=== PATIENT | male | born 1990 | race Hispanic/Latino ===

== ENCOUNTER 2018-06-02 09:15 | Outpatient (CLI) | payer OTHER | END 2018-06-02 09:16 | disposition home or self-care (01) | LOC: DTY/OP 09:15 | PROVIDERS: ATTEND Family Medicine | DX: E11.9 Type 2 diabetes mellitus without complications (principal) | CPT/HCPCS: 97802 ==

== ENCOUNTER 2023-10-23 10:22 | Outpatient (CLI) | payer BC | END 2023-10-23 10:23 | disposition home or self-care (01) | LOC: MRI 10:22 | PROVIDERS: ATTEND Otolaryngology Plastic Surgery within the Head & Neck | DX: H90.42 Sensorineural hearing loss, unilateral, left ear, with unrestricted hearing on the contralateral side (principal) | CPT/HCPCS: 70553; A9579 ==

== ENCOUNTER 2023-12-24 08:56 | Outpatient (CLI) | payer BC | END 2023-12-24 08:57 | disposition home or self-care (01) | LOC: BICULT 08:56 | PROVIDERS: ATTEND Nurse Practitioner Family | DX: R74.8 Abnormal levels of other serum enzymes (principal); K76.0 Fatty (change of) liver, not elsewhere classified; R16.0 Hepatomegaly, not elsewhere classified | CPT/HCPCS: 76705 ==

== ENCOUNTER 2024-05-12 07:31 | Outpatient (CLI) | payer BC | END 2024-05-12 07:32 | disposition home or self-care (01) | LOC: CT 07:31 | PROVIDERS: ATTEND Otolaryngology Plastic Surgery within the Head & Neck | DX: H90.42 Sensorineural hearing loss, unilateral, left ear, with unrestricted hearing on the contralateral side (principal) | CPT/HCPCS: 70480 ==